=== PATIENT | male | born 1940 | race Caucasian/White ===

== ENCOUNTER 2017-06-08 08:16 | Day surgery (SDC) | payer MEDICARE, BC ==
[~2017-06-08 08:16] MED LIST: BUPIVACAINE HCL 0.75% INJ/PF (7.5 MG/1 ML) 10 ML SDV OS PRN; KETOROLAC TROMETHAMINE 0.45% 4 DROP/0.4 ML DROPERETTE OS PRN; LIDOCAINE 4% INJ/PF (40 MG/ML) 5 ML AMPUL OS PRN
[2017-06-08] MEDS ORDERED: LIDOCAINE 1% INJ-PF (10 MG/ML) 30 ML SDV ONE (08:19)
[2017-06-08] MEDS ORDERED: PHENYLEPHRINE/KETOROLAC 1%-0.3% 4 ML VIAL ONE (08:19)
[2017-06-08] MEDS ORDERED: CHONDR SU A NA/HYALUR INTRAOC KIT (SURGICARE) ONE (08:20)
[2017-06-08] MEDS: BESIFLOXACIN HCL 0.6% OPH SUSP 5 ML BOTTLE OS PRN ×4 (08:35→09:48)
[2017-06-08] MEDS: CYCLOPENTOLATE 0.2%/PHENYLEPHRINE 1% OPH SOLN 2 ML OS PRN ×3 (08:35→08:55)
[2017-06-08] MEDS: TROPICAMIDE 1% OPH SOLN 3 ML OS PRN ×3 (08:35→08:55)
[2017-06-08] MEDS: TETRACAINE HCL 0.5% OPH SOLN 0.6 ML DROPERETTE OS PRN ×2 (08:36→08:55)
[2017-06-08] MEDS ORDERED: MIDAZOLAM 2 MG/2 ML INJ ONE (09:00)
--- NOTE | 2017-06-08 10:03 | [facility] OPERATIVE REPORT E ---
[facility] Operative Report NAME: PAKRER GUAMAN AGE: 77Y DATE OF SURGERY: 06/08/2017 ROOM: PREOPERATIVE DIAGNOSIS: Cataract, left eye. POSTOPERATIVE DIAGNOSIS: Cataract, left eye. PROCEDURE PERFORMED: Phacoemulsification with posterior chamber intraocular lens, left eye. SURGEON: PANCHITO PLAZA M.D. ANESTHESIA: Topical with MAC. INDICATIONS FOR SURGERY: Difficulty reading road signs with glare at night. Best corrected visual acuity 20/60. PROCEDURE: The patient was brought to the Operating Room and placed on the operative table. Following tetracaine drops, topical anesthesia was administered. This consisted of instrument wipe pledgets soaked in a solution of 4% Xylocaine mixed with 0.75% Marcaine in a 1:2 ratio. A 2 x 1 cm pledget was placed in the superior fornix. A 1 x 1 cm pledget was placed in the inferior fornix. The eye was patched shut for 5 minutes. The patch was removed. The eye was sterilely prepped and draped in the usual manner. Lid speculum was placed in the eye. The pledgets were removed and 4-0 black silk sutures were placed around the superior and the inferior rectus muscles to be used as traction. A conjunctival peritomy was made at the 10 o'clock position. Hemostasis was obtained with bipolar cautery. A posterior limbal groove was created using a crescent knife and dissected anteriorly towards the cornea. A sharp point blade was used to create a paracentesis site at the 2 o'clock position. A 2.4 mm keratome was used to enter the anterior chamber through the groove. Viscoelastic was injected into the anterior chamber. An anterior capsulotomy was performed using Utrata forceps in a capsulorrhexis fashion. Hydrodissection and hydrodelineation were performed. Phacoemulsification was performed in dqzwep-shm-dikpdtu technique. A total of 39 seconds phaco time was used. Following this, the I/A unit was used to remove residual cortex. Viscoelastic was injected into the capsular bag. Intraocular lens model SN60WF, 17.5 diopters, serial number [id number], was placed in the capsular bag. The I/A unit was used to remove residual viscoelastic. The wound was seen to be watertight under high and low pressure, and no sutures were placed. The intraocular lens was well centered. The pressure was adjusted in the eye to normal pressure. The 4-0 black silk sutures and lid speculum were removed. The eye was shielded after Besivance drops were placed. The patient tolerated the procedure well and was sent to the Recovery Room in good condition. DICTATING PHYSICIAN: PANCHITO PLAZA M.D. 1209M 1000 PHY#: [id number] ID: [id number] JOB#: [id number] ACCT: [id number] cc:PANCHITO PLAZA M.D. >
--- NOTE | 2017-06-08 10:08 | [facility] DISCHARGE SUMMARY E ---
[facility] Discharge Summary NAME: PARKER GUAMAN AGE: 77Y ADMITTED: 06/08/2017 DISCHARGED: 06/08/2017 FINAL DIAGNOSIS: Cataract, left eye. HOSPITAL COURSE: The patient is a 77-year-old gentleman who underwent uneventful cataract extraction with intraocular lens implant, left eye, on 06/08/2017. He will be discharged to home. He was instructed to resume preoperative medications, to take Tylenol as needed for discomfort, to keep his eye shielded, to use Besivance, Durezol and Ilevro at 3 p.m. and 8 p.m., and to follow up in my office in 1 day. DICTATING PHYSICIAN: PANCHITO PLAZA M.D. 1209M 1002 PHY#: [id number] ID: [id number] JOB#: [id number] ACCT: [id number] cc:PANCHITO PLAZA M.D. >
== END 2017-06-08 10:34 | disposition home or self-care (01) ==
LOC: SC 08:16
PROVIDERS: ATTEND Ophthalmology
PROC: 08RK3JZ Replacement of Left Lens with Synthetic Substitute, Percutaneous Approach (ICD-10-PCS; principal; 2017-06-08 09:30)
DX: H25.812 Combined forms of age-related cataract, left eye (principal); H40.1131 Primary open-angle glaucoma, bilateral, mild stage; H04.123 Dry eye syndrome of bilateral lacrimal glands; F17.210 Nicotine dependence, cigarettes, uncomplicated; I10 Essential (primary) hypertension; E11.9 Type 2 diabetes mellitus without complications; Z79.899 Other long term (current) drug therapy; Z79.84 Long term (current) use of oral hypoglycemic drugs
CPT/HCPCS: 66984; 82962; V2632; J2250; J3490 ×4; A9270; C9447; 142

== ENCOUNTER 2017-06-29 09:10 | Day surgery (SDC) | payer MEDICARE, BC ==
[~2017-06-29 09:10] MED LIST changes: +BUPIVACAINE HCL 0.75% INJ/PF (7.5 MG/1 ML) 10 ML SDV OD PRN; -BUPIVACAINE HCL 0.75% INJ/PF (7.5 MG/1 ML) 10 ML SDV OS PRN; +KETOROLAC TROMETHAMINE 0.45% 4 DROP/0.4 ML DROPERETTE OD PRN; -KETOROLAC TROMETHAMINE 0.45% 4 DROP/0.4 ML DROPERETTE OS PRN; +LIDOCAINE 4% INJ/PF (40 MG/ML) 5 ML AMPUL OD PRN; -LIDOCAINE 4% INJ/PF (40 MG/ML) 5 ML AMPUL OS PRN
[2017-06-29] MEDS ORDERED: PHENYLEPHRINE/KETOROLAC 1%-0.3% 4 ML VIAL ONE (09:22)
[2017-06-29] MEDS ORDERED: LIDOCAINE 1% INJ-PF (10 MG/ML) 30 ML SDV ONE (09:23)
[2017-06-29] MEDS ORDERED: CHONDR SU A NA/HYALUR INTRAOC KIT (SURGICARE) ONE (09:23)
[2017-06-29] MEDS: CYCLOPENTOLATE 0.2%/PHENYLEPHRINE 1% OPH SOLN 2 ML OD PRN ×3 (09:31→09:55)
[2017-06-29] MEDS: TETRACAINE HCL 0.5% OPH SOLN 0.6 ML DROPERETTE OD PRN ×2 (09:31→09:56)
[2017-06-29] MEDS: TROPICAMIDE 1% OPH SOLN 3 ML OD PRN ×3 (09:32→09:55)
[2017-06-29] MEDS: BESIFLOXACIN HCL 0.6% OPH SUSP 5 ML BOTTLE OD PRN ×3 (09:32→10:56)
[2017-06-29] MEDS ORDERED: MIDAZOLAM 2 MG/2 ML INJ ONE (09:54)
[2017-06-29] MEDS ORDERED: FENTANYL CITRATE INJ/PF 100 MCG/2 ML AMPUL ONE (09:55)
[2017-06-29] MEDS ORDERED: ALBUTEROL SULFATE HFA (90 MCG/PUFF) 200 PUFF/8.5 GM MDI IH ONE (09:55)
[2017-06-29] MEDS ORDERED: HYALURONATE SODIUM SYRINGE 0.55 ML ONE (09:59)
--- NOTE | 2017-06-29 11:17 | [facility] OPERATIVE REPORT E ---
[facility] Operative Report NAME: PARKER GUAMAN AGE: 77Y DATE OF SURGERY: 06/29/2017 ROOM: PREOPERATIVE DIAGNOSES: 1. Cataract, right eye. 2. Primary open angle glaucoma, right eye. POSTOPERATIVE DIAGNOSES: 1. Cataract, right eye. 2. Primary open angle glaucoma, right eye. PROCEDURE PERFORMED: Cataract extraction with insertion of iStent right eye and intraocular lens right eye. SURGEON: Leonila Plaza MD ANESTHESIA: Topical with MAC. Following the incision, 0.5 mL of 1% lidocaine was injected in the eye. INDICATIONS FOR SURGERY: Difficulty reading words on TV and small print and glare at night. Best corrected visual acuity 20/40. PROCEDURE: The patient was brought to the operating room and placed on the operative table. Following tetracaine drops, topical anesthesia was administered. This consisted of instrument wipe pledgets soaked in a solution of 4% Xylocaine mixed with 0.75% Marcaine in a 1:2 ratio. A 2 x 1 cm pledget was placed in the superior fornix. A 1 x 1 cm pledget was placed in the inferior fornix. The eye was patched shut for 5 minutes. The patch was removed. The eye was sterilely prepped and draped in the usual manner. Lid speculum was placed in the eye. The pledgets were removed. 4-0 black silk sutures were placed around the superior and the inferior rectus muscles to be used as traction. A. A sharp point blade was used to create a paracentesis site at the 12 o'clock position. A 2.4 mm keratome was used to enter the anterior chamber through the cornea temporally. Following the incision, 0.5 mL of 1% lidocaine was injected in the eye. Viscoelastic was injected into the anterior chamber. An anterior capsulotomy was performed using Utrata forceps in a capsulorrhexis fashion. Hydrodissection and hydrodelineation were performed. Phacoemulsification was performed in rzlvzt-ewo-imkqaik technique. A total of 43 seconds phaco time was used. Following this, the I/A unit was used to remove residual cortex. Viscoelastic was injected into the capsular bag. Intraocular lens model SN60WF, 17.5 diopters, serial number [id number] was placed in the capsular bag. Following implantation of the intraocular lens, the eye was rotated 30 degrees as well as the microscope. Viscoelastic was placed on the cornea. A Gonio lens was placed on the cornea and the trabecular meshwork was visualized. The iStent was opened and placed in the trabecular meshwork nasally. There was a small amount of heme which was cleared after irrigating the viscoelastic out of the eye.The I/A unit was used to remove residual viscoelastic. The wound was seen to be watertight under high and low pressure, and no sutures were placed. The intraocular lens was well centered. The pressure was adjusted in the eye to normal pressure. The 4-0 black silk sutures and lid speculum were removed. The eye was shielded after Besivance drops were placed. The patient tolerated the procedure well and was sent to the recovery room in good condition. DICTATING PHYSICIAN: LEONILA PLAZA M.D. 1211M 110 PHY#: [id number] ID: [id number] JOB#: [id number] ACCT: [id number] cc:LEONILA PLAZA M.D. > MTDD
--- NOTE | 2017-06-29 11:22 | [facility] DISCHARGE SUMMARY E ---
[facility] Discharge Summary NAME: PARKER GUAMAN AGE: 77Y ADMITTED: 06/29/2017 DISCHARGED: 06/29/2017 PREOPERATIVE DIAGNOSES: 1. Cataract, right eye. 2. Primary open angle glaucoma, right eye. POSTOPERATIVE DIAGNOSES: 1. Cataract, right eye. 2. Primary open angle glaucoma, right eye. HOSPITAL COURSE: The patient is a 77-year-old gentleman who underwent uneventful cataract extraction with intraocular lens implant and insertion of iStent, right eye. He will be discharged to home. He was instructed to resume preoperative medications, take Tylenol as needed for discomfort, to keep his eye shielded, to use Besivance, Durezol, and Ilevro at 3 p.m. and 8 p.m., to continue his timolol, and to followup in my office in 1 day. DICTATING PHYSICIAN: PANCHITO PLAZA M.D. 1211M 1116 PHY#: [id number] ID: [id number] JOB#: [id number] ACCT: [id number] cc:PANCHITO PLAZA M.D. >
== END 2017-06-29 11:37 | disposition home or self-care (01) ==
LOC: SC 09:10
PROVIDERS: ATTEND Ophthalmology
PROC: 08RJ3JZ Replacement of Right Lens with Synthetic Substitute, Percutaneous Approach (ICD-10-PCS; 2017-06-29)
PROC: 089230Z Drainage of Right Anterior Chamber with Drainage Device, Percutaneous Approach (ICD-10-PCS; principal; 2017-06-29 10:30)
DX: H25.811 Combined forms of age-related cataract, right eye (principal); H40.1131 Primary open-angle glaucoma, bilateral, mild stage; Z96.1 Presence of intraocular lens; I10 Essential (primary) hypertension; E11.9 Type 2 diabetes mellitus without complications; Z79.899 Other long term (current) drug therapy; Z79.84 Long term (current) use of oral hypoglycemic drugs
CPT/HCPCS: 82962; 66984; 0191T; C1783; V2632; J2250; J3490 ×6; A9270; J3010; C9447; 142

== ENCOUNTER → 2018-08-31 | Outpatient (CLI) | payer MEDICARE, BC ==
--- NOTE | 2018-08-31 08:28 | RADIOLOGY REPORT (SQ) ---
EXAM DESCRIPTION: CHEST PA/LATERAL COMPLETED DATE/TIME: 08/31/2018 7:41 am REASON FOR STUDY: MALIGNANT NEOPLASM OF LATERAL WALL OF BLADDER COMPARISON: None. EXAM PARAMETERS: NUMBER OF VIEWS: two views TECHNIQUE: Digital Frontal and Lateral radiographic views of the chest acquired. RADIATION DOSE: NA LIMITATIONS: none FINDINGS: LUNGS AND PLEURA: Minimal linear left basilar atelectasis/ scarring. No focal airspace di sease. No pleural effusion or pneumothorax. Prominent nipple shadows bilaterally, stable. MEDIASTINUM AND HILAR STRUCTURES: No masses or contour abnormalities. HEART AND VASCULAR STRUCTURES: Normal heart size. Atherosclerotic aorta. BONES: No acute bony abnormality. Mild degenerative changes at the shoulders. HARDWARE: None in the chest. OTHER: No other significant finding. IMPRESSION: Mild linear left basilar atelectasis/scarring. No additional evidence of acute intratho racic process. TECHNICAL DOCUMENTATION: JOB ID: [id number] [employer]- All Rights Reserved Reading location - IP/workstation name: [email or web address]
== END ==
LOC: OD 07:25
PROVIDERS: ATTEND Internal Medicine Medical Oncology
DX: C67.2 Malignant neoplasm of lateral wall of bladder (principal); C61 Malignant neoplasm of prostate
CPT/HCPCS: 71046

== ENCOUNTER → 2019-10-10 | Outpatient (CLI) | payer MEDICARE, BC ==
--- NOTE | 2019-10-10 17:39 | RADIOLOGY REPORT (SQ) ---
EXAM DESCRIPTION: PET CT SKULL/THIGH COMPLETED DATE/TIME: 10/10/2019 1:10 pm REASON FOR STUDY: BLADDER CA (C67.9) C67.9 MALIGNANT NEOPLASM OF BLADDER, UNSPECIFIED COMPARISON: CT abdomen pelvis 12/15/2013 CT abdomen pelvis ORC 09/22/2019 report only RADIONUCLIDE AND DOSE: 10.2 mCi F18 FDG The route of agent administration: Intravenous FASTING BLOOD SUGAR: 115 mg/dl CONTRAST TYPE AND DOSE: No CT contrast given. TECHNIQUE: Blood glucose level was verified. Above dose of FDG was injected intravenously. 2-D seg mented attenuation correction images were obtained from the base of the skull to the midthighs. Nonc ontrast CT images were obtained for attenuation correction and fusion with emission images. CT image s were performed without oral or intravenous contrast and are not sensitive for parenchymal lesions. A series of overlapping emission PET images were obtained. Images reviewed and manipulated at [facility] work station by the radiologist. Images stored on PACS. LIMITATIONS: None. FINDINGS: HEAD AND NECK: No areas of abnormal metabolic activity in the soft tissues of the head and neck. CHEST: No areas of abnormal metabolic activity in the chest. ABDOMEN AND PELVIS: No areas of abnormal metabolic activity in the abdomen or pelvis. Expected physi ologic activity is present in the genitourinary system and bowel. No metabolically active adenopathy in inguinal iliac or retroperitoneal regions. PROXIMAL LOWER EXTREMITIES: No areas of abnormal metabolic activity in the soft tissues of the lower extremities. BONES: No abnormal metabolic activity in the visualized skeleton. ADDITIONAL CT FINDINGS: Post cystoprostatectomy with neobladder. OTHER: No other significant findings. IMPRESSION: No PET-CT evidence of metastatic disease given history of bladder/ prostate cancer TECHNICAL DOCUMENTATION: JOB ID: [id number] 2010 [employer]- All Rights Reserved Reading location - IP/workstation name: [email or web address]
== END ==
LOC: RAD 09:11
PROVIDERS: ATTEND Urology
DX: C67.8 Malignant neoplasm of overlapping sites of bladder (principal)
CPT/HCPCS: 78815; A9552